=== PATIENT | male | born 1980 | race Caucasian/White ===

== ENCOUNTER 2017-02-26 14:03 | Emergency (ER) | payer MEDICARE, MEDICAID ==
[2017-02-26] MEDS ORDERED: Lidocaine 1% w/Epinephrine 1:100K 30 ML VIAL ONE (14:17)
[2017-02-26] MEDS ORDERED: Bacitracin Zinc 1 Packet ONE (14:31)
== END 2017-02-26 14:34 | disposition home or self-care (01) ==
LOC: BURERS 14:03
DX: S51.011A Laceration without foreign body of right elbow, initial encounter (principal); K21.9 Gastro-esophageal reflux disease without esophagitis; J45.909 Unspecified asthma, uncomplicated; E78.00 Pure hypercholesterolemia, unspecified; F17.210 Nicotine dependence, cigarettes, uncomplicated; V80.010A Animal-rider injured by fall from or being thrown from horse in noncollision accident, initial encounter
CPT/HCPCS: 12001; J2001

== ENCOUNTER 2017-05-27 17:25 | Emergency (ER) | payer MEDICARE, MEDICAID ==
[2017-05-27] MEDS ORDERED: Ketorolac Tromethamine 60 MG/2 ML VIAL ONE (18:56)
[2017-05-27] MEDS ORDERED: Sulfameth/Trimethoprim DS 800-160mg TAB ONE (18:56)
--- NOTE | 2017-05-27 23:25 | RAD ---
RIGHT ELBOW FOUR VIEWS: 05/27/2017 FINDINGS: Soft tissue swelling is seen over the posterior part of the elbow. There is an area of lucency in t he olecranon, along with a small amount of periosteal reaction, some of which is perpendicular to th e surface of the bone. There does not appear to be any joint fluid. One margin of the olecranon se emed slightly sclerotic. I cannot tell if this was an actual injury or not. At any rate, I would f irst be worried about the possibility of a bony infection. Neoplastic change seems less likely, giv en the fact that there was trauma here in the recent past. I believe orthopedic referral is in orde r. The radius and the distal humerus both appear normal. IMPRESSION: Soft tissue swelling over the olecranon area. The olecranon itself has a lucent area with some belén osteal reaction associated with it that is unusual in appearance. The possibility of osteomyelitis must be considered. This could all be post traumatic but the appearance is somewhat atypical for th at. Orthopedic referral is required. CODE T POS: HOME
== END 2017-05-27 19:16 | disposition home or self-care (01) ==
LOC: BURERS 17:25
DX: M70.21 Olecranon bursitis, right elbow (principal); L03.113 Cellulitis of right upper limb; K21.9 Gastro-esophageal reflux disease without esophagitis; E78.5 Hyperlipidemia, unspecified; E78.2 Mixed hyperlipidemia; J45.909 Unspecified asthma, uncomplicated; F17.210 Nicotine dependence, cigarettes, uncomplicated
CPT/HCPCS: 23931; 96372; J1885

== ENCOUNTER 2018-05-11 23:15 | Emergency (ER) | payer MEDICARE, MEDICAID ==
[2018-05-11] MEDS ORDERED: Cyclobenzaprine 10 MG TAB ONE (23:29)
[2018-05-11] MEDS ORDERED: Ketorolac Tromethamine 60 MG/2 ML VIAL ONE (23:29)
== END 2018-05-11 23:35 | disposition home or self-care (01) ==
LOC: BURERS 23:15
DX: M54.12 Radiculopathy, cervical region (principal); E78.5 Hyperlipidemia, unspecified; E78.1 Pure hyperglyceridemia; K21.9 Gastro-esophageal reflux disease without esophagitis; J45.909 Unspecified asthma, uncomplicated; F17.210 Nicotine dependence, cigarettes, uncomplicated; Z79.899 Other long term (current) drug therapy
CPT/HCPCS: 96372; J1885

== ENCOUNTER 2018-11-27 16:42 | Emergency (ER) | payer MEDICARE, MEDICAID ==
[2018-11-27] MEDS ORDERED: Ketorolac Tromethamine 60 MG/2 ML VIAL ONE (16:55)
== END 2018-11-27 17:25 | disposition home or self-care (01) ==
LOC: BURERS 16:42
DX: H61.23 Impacted cerumen, bilateral (principal); J45.909 Unspecified asthma, uncomplicated; F17.210 Nicotine dependence, cigarettes, uncomplicated
CPT/HCPCS: 96372; J1885

== ENCOUNTER 2018-12-04 20:37 | Emergency (ER) | payer MEDICARE, OTHER ==
[2018-12-04 21:30] LABS: Bilirubin Negative (Negative); Blood, Urine Negative (Negative); Clarity Clear (Clear); Glucose, Urine (Dipstick) Negative (Negative); Leukocyte Negative (Negative); Nitrite Negative (Negative); Protein, Urine (Dipstick) Negative (Neg-Trace); Urobilinogen 0.2 mg/dL (0.2-1.0)
[2018-12-04 22:27] LABS: #Basophils 0.1 thou/uL (0.0-0.2); #Eosinphils 0.1 thou/uL (0.0-0.7); #Lymphocytes 3.3 thou/uL (1.20-3.40); #Monocytes 0.6 thou/uL (0.11-0.59); #Neutrophils 5.4 thou/uL (1.40-6.50); %Monocytes 5.9 % (0.0-10.0); %Neutrophils 57.1 % (42.0-75.0); Mean Corpuscular HGB CONC 33.5 g/dL (32.0-36.0); Mean Corpuscular Hemoglobin 30.9 pg (27.0-31.0); Mean Corpuscular Volume 92.3 fL (78.0-98.0); Mean Platelet Volume 7.1 fL (7.4-10.4); Platelet Count 279 thou/uL (130-400); RBC Distribution Width 11.6 % (11.5-14.5); Red Blood Cell (RBC) Count 4.52 mill/uL (4.70-6.10); White Blood Cell (WBC) Count 9.5 thou/uL (4.8-10.8)
[2018-12-04 22:41] LABS: ALT (SGPT) 9 U/L (8-55); AST (SGOT) 13 U/L (5-34); Albumin 4.4 g/dL (3.5-5.0); Alcohol Less than 10 mg/dL (Less than 10); Alkaline Phosphatase 70 U/L (40-150); Anion Gap 13 mmol/L (10-20); BUN (Urea Nitrogen) 15 mg/dL (8.9-20.6); Bilirubin, Total 0.2 mg/dL (0.2-1.2); Calc. Creatinine Clearance 0 mL/min (70-130); Calcium 9.3 mg/dL (7.8-10.44); Carbon Dioxide 22 mmol/L (22-29); Chloride 109 mmol/L (98-107); Estimated GFR-MDRD Greater than 90; Globulin 2.4 g/dL (2.4-3.5); Glucose 95 mg/dL (70-105); Potassium 3.5 mmol/L (3.5-5.1); Protein, Total 6.8 g/dL (6.0-8.3); Sodium 140 mmol/L (136-145)
[2018-12-04 22:49] LABS: Amphetamine Not Detected (NotDetected); Barbiturates Screen Not Detected (NotDetected); Benzodiazepine Screen Not Detected (NotDetected); Cocaine Metabolite Screen Not Detected (NotDetected); Medtox Control Line Valid? VALID (VALID); Methadone Not Detected (NotDetected); Methamphetamine Not Detected (NotDetected); Opiate Screen Not Detected (NotDetected); Oxycodone Screen Not Detected (NotDetected); Phencyclidine (PCP) Not Detected (NotDetected); THC/Cannabinoid Screen Not Detected (NotDetected); Tricyclic Screen Not Detected (NotDetected)
== END 2018-12-04 23:05 | disposition home or self-care (01) ==
LOC: BURERS 20:37
DX: R42 Dizziness and giddiness (principal); E78.5 Hyperlipidemia, unspecified; I10 Essential (primary) hypertension; J45.909 Unspecified asthma, uncomplicated; K21.9 Gastro-esophageal reflux disease without esophagitis; E78.2 Mixed hyperlipidemia; F17.210 Nicotine dependence, cigarettes, uncomplicated; Z79.899 Other long term (current) drug therapy
CPT/HCPCS: 36415; 80053; 80306; 80307; 81003; 84484; 85025; 93005

== ENCOUNTER 2020-01-23 21:53 | Emergency (ER) | payer MEDICARE, MEDICAID ==
[2020-01-23 22:26] LABS: #Basophils 0.1 thou/uL (0.0-0.2); #Eosinphils 0.2 thou/uL (0.0-0.7); #Lymphocytes 2.8 thou/uL (1.20-3.40); #Monocytes 0.6 thou/uL (0.11-0.59); #Neutrophils 4.9 thou/uL (1.40-6.50); %Eosinophils 2.3 % (0.0-10.0); %Monocytes 6.8 % (0.0-10.0); %Neutrophils 56.9 % (42.0-75.0); Hemoglobin 14.8 g/dL (14.0-18.0); Mean Corpuscular HGB CONC 32.8 g/dL (32.0-36.0); Mean Corpuscular Hemoglobin 31.1 pg (27.0-31.0); Mean Platelet Volume 7.6 fL (7.4-10.4); Platelet Count 247 thou/uL (130-400); RBC Distribution Width 11.6 % (11.5-14.5); Red Blood Cell (RBC) Count 4.75 mill/uL (4.70-6.10); White Blood Cell (WBC) Count 8.6 thou/uL (4.8-10.8)
[2020-01-23 22:40] LABS: ALT (SGPT) 10 U/L (8-55); AST (SGOT) 14 U/L (5-34); Albumin 4.6 g/dL (3.5-5.0); Alkaline Phosphatase 69 U/L (40-110); Anion Gap 12 mmol/L (10-20); BUN (Urea Nitrogen) 8 mg/dL (8.9-20.6); Bilirubin, Total 0.4 mg/dL (0.2-1.2); Calc. Creatinine Clearance 0 mL/min (70-130); Calcium 9.3 mg/dL (7.8-10.44); Carbon Dioxide 24 mmol/L (22-29); Chloride 104 mmol/L (98-107); Estimated GFR-MDRD Greater than 90; Globulin 2.3 g/dL (2.4-3.5); Glucose 101 mg/dL (70-105); Potassium 3.4 mmol/L (3.5-5.1); Protein, Total 6.9 g/dL (6.0-8.3); Sodium 137 mmol/L (136-145)
--- NOTE | 2020-01-24 08:51 | RAD ---
PORTABLE CHEST: DATE: 01/23/2020. FINDINGS: An AP portable film at 2019 is compared with a 01/23/2017 study. The heart is normal in size and the lungs are clear. No infiltrate or effusion was seen. There is n o vascular congestion or edema. IMPRESSION: No acute thoracic finding. POS: HOME
== END 2020-01-23 22:49 | disposition home or self-care (01) ==
LOC: BURERS 21:53
DX: I49.5 Sick sinus syndrome (principal); I10 Essential (primary) hypertension; J45.909 Unspecified asthma, uncomplicated; K21.9 Gastro-esophageal reflux disease without esophagitis; E78.2 Mixed hyperlipidemia; F17.210 Nicotine dependence, cigarettes, uncomplicated
CPT/HCPCS: 36415; 71045; 80053; 84484; 85025; 93005

== ENCOUNTER 2021-01-31 17:21 | Emergency (ER) | payer MEDICARE, MEDICAID ==
[2021-01-31] MEDS ORDERED: Boostrix 0.5 ML (Tdap) VIAL ONE (17:37)
[2021-01-31] MEDS ORDERED: Sulfameth/Trimethoprim DS 800-160mg TAB ONE (17:38)
[2021-01-31] MEDS ORDERED: Tranexamic Acid 1,000 MG/10 ML VIAL ONE (17:38)
== END 2021-01-31 17:46 | disposition home or self-care (01) ==
LOC: BURERS 17:21
DX: S61.215A Laceration without foreign body of left ring finger without damage to nail, initial encounter (principal); L08.9 Local infection of the skin and subcutaneous tissue, unspecified; F17.210 Nicotine dependence, cigarettes, uncomplicated; F31.9 Bipolar disorder, unspecified; Z79.899 Other long term (current) drug therapy; W45.8XXA Other foreign body or object entering through skin, initial encounter
CPT/HCPCS: 90471; 90715

== ENCOUNTER 2021-02-17 00:10 | Emergency (ER) | payer MEDICARE, OTHER ==
[2021-02-17] MEDS ORDERED: Sulfameth/Trimethoprim DS 800-160mg TAB ONE (00:27)
== END 2021-02-17 00:30 | disposition home or self-care (01) ==
LOC: BURERS 00:10
DX: L03.312 Cellulitis of back [any part except buttock and flank] (principal); L03.811 Cellulitis of head [any part, except face]; F17.210 Nicotine dependence, cigarettes, uncomplicated
CPT/HCPCS: 99283